=== PATIENT | female | born 1965 | race Two or more races ===

== ENCOUNTER 2024-02-11 13:39 | Outpatient (CLI) | payer MEDICARE, MEDICAID | END 2024-02-11 23:59 | disposition home or self-care (01) | LOC: MRI 13:39 | PROVIDERS: ATTEND Physician Assistant | DX: S73.192A Other sprain of left hip, initial encounter (principal); M25.552 Pain in left hip; M16.12 Unilateral primary osteoarthritis, left hip; M62.58 Muscle wasting and atrophy, not elsewhere classified, other site; M71.552 Other bursitis, not elsewhere classified, left hip; X58.XXXA Exposure to other specified factors, initial encounter; Y93.89 Activity, other specified; Y92.89 Other specified places as the place of occurrence of the external cause; Y99.8 Other external cause status | CPT/HCPCS: 73721 ==

== ENCOUNTER 2025-03-01 10:43 | Outpatient (CLI) | payer MEDICARE, MEDICAID ==
--- NOTE | 2025-03-01 15:27 | RADIOLOGY REPORT ---
EXAM: MR MRI LOWER EXTREMITY LEFT INDICATION: PAIN IN LEFT HIP TECHNIQUE: Multiplanar and multisequence MR imaging of the left hip was performed in the absence of gadolinium contrast material. COMPARISON: MR MRI LOWER EXTREMITY LEFT on DOS: 02/11/24 FINDINGS: [BONE]: Sacroiliac joints and pubic symphysis intervals are normal. Bone marrow signal is normal. No acute fracture, osseous contusion, avascular necrosis, or aggressive osseous lesion. [MUSCLES]: Fatty atrophy in the areas of the gluteus minimus and medius. [JOINT SPACE]: No joint effusion. [BURSAE]: No trochanteric or iliopsoas bursal collection. [LABRUM/CARTILAGE]: Complex tearing of the anterior labrum with full-thickness tear component of the chondrolabral junction with the associated possible intrasubstance versus paralabral cysts measuring 4 mm anteriorly (series 8, image 14). [LIGAMENTS]: Intact ligamentum teres, acetabular transverse ligament, and joint capsular ligaments. [TENDONS]: Intact rectus femoris, hamstring, and gluteal tendons. [OTHER]: None IMPRESSION: 1. Complex tearing of the anterior labrum with full-thickness tear component of the chondrolabral junction with the associated possible intrasubstance versus paralabral cysts measuring 4 mm anteriorly.
== END 2025-03-01 23:59 | disposition home or self-care (01) ==
LOC: MRI02 10:43
PROVIDERS: ATTEND Registered Nurse
DX: S73.192A Other sprain of left hip, initial encounter (principal); M16.12 Unilateral primary osteoarthritis, left hip; M25.552 Pain in left hip; E66.9 Obesity, unspecified; I10 Essential (primary) hypertension; X58.XXXA Exposure to other specified factors, initial encounter; Y93.89 Activity, other specified; Y92.89 Other specified places as the place of occurrence of the external cause; Y99.8 Other external cause status
CPT/HCPCS: 73721